=== PATIENT | male | born 1990 | race African-American/Black ===

== ENCOUNTER 2021-04-07 16:33 | Outpatient (CLI) | payer OTHER ==
--- NOTE | 2021-04-07 17:26 | XRAY Report ---
PROCEDURE: Abdomen 1 View X-Ray INDICATIONS: ABDOMINAL PX TECHNIQUE: 1 view of the abdomen were acquired. COMPARISON: None FINDINGS: Surgical changes and devices: None. Bowel: No pneumoperitoneum. The bowel gas pattern is normal. Soft tissues: No masses; visualized solid organ contours appear normal in size. No suspicious abdom inal calcifications. Bones: No suspicious bony abnormalities. IMPRESSION: No acute disease process. Reviewed by: Ida Mcgraw MD, PhD on 04/07/2021 5:25 PM PDT Approved by: Ida Mcgraw MD, PhD on 04/07/2021 5:25 PM PDT Station ID: [id number]
== END 2021-04-07 23:59 | disposition home or self-care (01) ==
LOC: DI.N 16:33
PROVIDERS: ATTEND Physician Assistant Medical
DX: R10.9 Unspecified abdominal pain (principal)

== ENCOUNTER 2021-04-20 08:00 | Outpatient (CLI) | payer OTHER ==
[2021-04-21 21:50] LABS: NEISSERIA GONORRHOEAE DNA NEGATIVE (NEGATIVE)
[2021-04-21 22:41] LABS: CHLAMYDIA TRACHOMATIS DNA POSITIVE (NEGATIVE)
== END 2021-04-20 23:59 | disposition home or self-care (01) ==
LOC: LAB.N 08:00
PROVIDERS: ATTEND Family Medicine
DX: R10.9 Unspecified abdominal pain (principal); N34.2 Other urethritis
CPT/HCPCS: 87086; 87491; 87591; 87661

== ENCOUNTER 2021-10-18 08:00 | Outpatient (CLI) | payer OTHER | END 2021-10-18 23:59 | LOC: LAB.N 08:00 | PROVIDERS: ATTEND Family Medicine | DX: U07.1 COVID-19 (principal) ==